=== PATIENT | female | born 1975 | race Caucasian/White ===

== ENCOUNTER → 2016-05-20 | Outpatient (CLI) | payer OTHER ==
--- NOTE | 2016-05-20 12:58 | US ---
Ultrasound Neck. HISTORY: Neck pain. Evaluate for lymphadenopathy. FINDINGS: Ultrasound was performed of the area of pain. In the upper right neck there are a couple be nign-appearing lymph nodes. The largest measures 3.3 x 0.7 x 1.9 cm with smooth margin and a fatty hi lum. Cortex thickness of this lymph node is 2 to 3 mm. Other smaller benign-appearing lymph nodes are also seen. No suspicious lymph node is visualized. Incidental note is made of a smooth atherosclerot ic plaque in the right carotid bulb with approximately 50% stenosis. IMPRESSION: 1. Benign-appearing lymph nodes in the upper right neck at the area of pain. One is slightly enlarged with benign appearance and consider follow up. 2. Incidental smooth atherosclerotic plaque at the right carotid bulb with approximately 50% stenosis . Consider dedicated study of the carotids.
== END ==
LOC: BMCIMAGING 11:38
PROVIDERS: ATTEND Nurse Practitioner Adult Health
DX: R59.0 Localized enlarged lymph nodes (principal); I65.21 Occlusion and stenosis of right carotid artery
CPT/HCPCS: 76536-PO

== ENCOUNTER → 2016-05-26 | Outpatient (CLI) | payer OTHER ==
--- NOTE | 2016-05-26 13:24 | US ---
Bilateral Duplex/Doppler Carotid Sonography Clinical Indications: Carotid atherosclerotic disease on recent ultrasound. Comparison: Ultrasound thyroid May 20, 2016 Technique: The cervical portions of the carotid and vertebral arteries were imaged and interrogated by color and pulsed Duplex/Doppler. Spectral analysis was performed. Findings: Right Carotid: Right CCA peak systolic velocity = 85 cm/sec Right ICA peak systolic velocity = 93 cm/sec Right ECA peak systolic velocity = 88 cm/sec Right ICA/CCA systolic velocity ratio = 1.1 No evidence of atherosclerotic carotid plaque or flow-limiting stenosis. Left Carotid: Left CCA peak systolic velocity = 82 cm/sec Left ICA peak systolic velocity = 87 cm/sec Left ECA peak systolic velocity = 87 cm/sec Left ICA/CCA systolic velocity ratio = 1.1 No evidence of atherosclerotic carotid plaque or flow-limiting stenosis. Vertebral Arteries: Antegrade flow is shown by pulsed Doppler of each vertebral artery. Impression: 1. No evidence of flow-limiting carotid stenosis. 2. No evidence of atherosclerotic carotid disease. 3. Bilateral vertebral arteries are patent with antegrade flow. Measurement of carotid stenosis is based on velocity parameters that correlate the residual internal carotid diameter with [place] Symptomatic Carotid Endarterectomy Trial (NASCET) based stenosis levels.
== END ==
LOC: BRMIMAGING 11:36
PROVIDERS: ATTEND Nurse Practitioner Adult Health
DX: Z03.89 Encounter for observation for other suspected diseases and conditions ruled out (principal)
CPT/HCPCS: 93880-PO

== ENCOUNTER → 2016-09-08 | Outpatient (CLI) | payer OTHER | LOC: BMCIMAGING 07:18 | PROVIDERS: ATTEND Internal Medicine | DX: R10.11 Right upper quadrant pain (principal) ==

== ENCOUNTER → 2018-04-16 | Outpatient (CLI) | payer OTHER | LOC: BMCIMAGING 13:36 | PROVIDERS: ATTEND Internal Medicine | DX: R07.81 Pleurodynia (principal) | CPT/HCPCS: 71101-PO ==

== ENCOUNTER → 2018-09-28 | Outpatient (CLI) | payer OTHER | LOC: BRMIMAGING 11:06 ==